=== PATIENT | male | born 1990 | race Caucasian/White ===

== ENCOUNTER 2017-09-03 15:09 | Emergency (ER) | payer SELFPAY ==
[2017-09-03 15:24] VITALS: PULSE 75
[2017-09-03] MEDS ORDERED: Sodium Chloride 0.9% 1,000 ML IV STA (15:36)
[2017-09-03] MEDS ORDERED: Sodium Chloride 0.9% 1,000 ML ONE (15:51)
[2017-09-03 16:07] LABS: BASO # 0.1 K/uL (0.0-0.2); BASO % 0.4 % (0.0-2.0); EOS # 0.2 K/uL (0.0-0.7); EOS % 1.2 % (0.0-4.0); HEMOGLOBIN 15.4 g/dL (12.0-18.0); LYMPH # 1.9 K/uL (1.0-4.3); MEAN CELL VOLUME 79.9 fL (80.0-94.0); MEAN CORPUSCULAR HEMOGLOBIN 27.8 pg (27.0-31.0); MEAN CORPUSCULAR HGB CONC 34.8 g/dL (33.0-37.0); MEAN PLATELET VOLUME 8.9 fL (7.2-11.7); MONO # 1.2 K/uL (0.0-0.8); MONO % 7.3 % (0.0-10.0); NEUT # 12.5 K/uL (1.8-7.0); NEUT % 79.1 % (50.0-75.0); NRBC % 0.5 % (0.0-2.0); RBC 5.53 Mil/uL (4.40-5.90); RED CELL DISTRIBUTION WIDTH 13.4 % (11.5-14.5); WHITE BLOOD COUNT 15.8 K/uL (4.8-10.8)
[2017-09-03 16:09] LABS: SQUAMOUS EPITHIAL < 1 /hpf (0-5); URINE BILIRUBIN NEGATIVE (NEGATIVE); URINE BLOOD 2+ (NEGATIVE); URINE CLARITY Clear (Clear); URINE COLOR Yellow (YELLOW); URINE GLUCOSE (UA) NORMAL (Normal); URINE LEUKOCYTE ESTERASE NEG Leu/uL (Negative); URINE PROTEIN NEGATIVE (NEGATIVE); URINE UROBILINOGEN NORMAL mg/dL (0.2-1.0)
--- NOTE | 2017-09-03 16:18 | C.PDOC ---
History Of Present Illness 27 y/o male presents to the ED complaining of right flank pain, onset earier today. Associated with nausea and vomiting. No fever, chills, dysuria, frequency , or hematuria. Patient reports PMHx of kidney stone on the other side a few years ago. He states his current symptoms are reminiscent of that pain. Time Seen by Provider: 09/03/17 15:34 Chief Complaint (Nursing): Male Genitourinary History Per: Patient History/Exam Limitations: no limitations Onset/Duration Of Symptoms: Hrs Current Symptoms Are (Timing): Still Present Past Medical History Reviewed: Historical Data, Nursing Documentation, Vital Signs Vital Signs: Last Vital Signs Temp 99.1 F 09/03/17 18:40 Pulse 75 09/03/17 18:40 Resp 18 09/03/17 18:40 BP 126/82 09/03/17 18:40 Pulse Ox 98 09/03/17 18:40 - Medical History PMH: Kidney Stones Surgical History: No Surg Hx Family History: States: No Known Family Hx - Social History Hx Tobacco Use: No Hx Alcohol Use: Yes Hx Substance Use: No - Immunization History Hx Tetanus Toxoid Vaccination: No Hx Influenza Vaccination: No Hx Pneumococcal Vaccination: No Review Of Systems Except As Marked, All Systems Reviewed And Found Negative. Constitutional: Negative for: Fever, Chills Gastrointestinal: Positive for: Nausea, Vomiting. Negative for: Diarrhea, Constipation, Hematochezia Genitourinary: Negative for: Dysuria, Frequency, Incontinence, Hematuria Physical Exam - Physical Exam Appears: No Acute Distress, Other (Uncomfortable, Appears restless) Skin: Normal Color, Warm, Dry Head: Atraumatic, Normacephalic Eye(s): bilateral: Normal Inspection, PERRL, EOMI Nose: Normal Oral Mucosa: Moist Neck: Normal ROM, Supple Cardiovascular: Rhythm Regular, No JVD Respiratory: Normal Breath Sounds, No Rales, No Rhonchi, No Wheezing Gastrointestinal/Abdominal: Soft, No Tenderness, No Distention, Other ( Exquisite tenderness to right flank) Back: Normal Inspection, No Vertebral Tenderness Extremity: Bilateral: Atraumatic, Normal Color And Temperature, Normal ROM Neurological/Psych: Oriented x3, Normal Speech, Normal Motor, Normal Sensation, Other (No focal deficits) ED Course And Treatment - Laboratory Results Result Diagrams: 09/03/17 16:09/03/17 16:01 O2 Sat by Pulse Oximetry: 99 (RA) Pulse Ox Interpretation: Normal - CT Scan/US CT A/P Other Rad Studies (CT/US): Read By Radiologist, Radiology Report Reviewed CT/US Interpretation: Accession No. : [id number]. Patient Name / ID : CELIA HOBBS / [id number]. Exam Date : 09/03/2017 16:37:22 ( Approved ). Study Comment : Sex / Age : M / 27Y. Creator : Dileep Khan MD. Dictator : Dileep Khan MD. Second Helper : Biological Scientist : Dileep Khan MD. Approver2 : Report Date : 09/03/2017 17:03:34. My Comment : . PROCEDURE: CT Abdomen and Pelvis without intravenous contrast. HISTORY: flank pain. COMPARISON: None. TECHNIQUE: Multiple contiguous axial images were performed through the abdomen and pelvis without the use of intravenous contrast. Subsequently, sagittal and coronal reformatted images were obtained. Radiation dose: Total exam DLP = 270 mGy-cm. This CT exam was performed using one or more of the following dose reduction techniques: Automated exposure control, adjustment of the mA and/or kV according to patient size, and/ or use of iterative reconstruction technique. FINDINGS: LOWER THORAX: Unremarkable. LIVER: Unremarkable. No gross lesion or ductal dilatation. GALLBLADDER AND BILE DUCTS: Unremarkable. PANCREAS: Unremarkable. No gross lesion or ductal dilatation. SPLEEN: Unremarkable. ADRENALS: Unremarkable. No mass. KIDNEYS AND URETERS: Mild to moderate right hydroureteronephrosis with associated perinephric fat stranding and an obstructing calculus in the mid right ureter measuring up to 7 millimeters. Additional calculus in the mid to lower pole of the right kidney measuring up to 6 millimeters. Few punctate 1 -2 millimeter nonobstructive calculi in the left kidney. VASCULATURE: Unremarkable. No aortic aneurysm. BOWEL: Fecal retention in the colon. Under distended descending colon. APPENDIX: Unremarkable. Normal appendix. PERITONEUM: Unremarkable. No free fluid. No free air. LYMPH NODES: Few shotty inguinal and para-aortic lymph nodes. Few shotty mesenteric lymph nodes. BLADDER: Unremarkable. REPRODUCTIVE: Unremarkable. BONES: Few scattered bone islands within the visualized osseous structures. OTHER FINDINGS : None. IMPRESSION: Mild to moderate right hydroureteronephrosis with associated perinephric fat stranding and an obstructing calculus in the mid right ureter measuring up to 7 millimeters. Additional calculus in the mid to lower pole of the right kidney measuring up to 6 millimeters. Additional findings as above. Progress Note: Labs and CT A/P ordered. Patient given IV fluids, Toradol, and Zofran. CT shows 7mm obstructing left stone, findings discussed in detail with patient. Patient given PO Flomax. 6:05pm Discussed case with Dr. Sobeida Caban , urology on-call, who recommends to d/c patient home, follow up in his office in 2 days, return to ED if feel worse. CT report and patient's information were faxed to 's office per his request and patient's permission. Disposition - Disposition Referrals: Sobeida Caban MD [Staff Provider] - Disposition: HOME/ ROUTINE Disposition Time: 18:27 Condition: STABLE Additional Instructions: Follow up with Urologist within 1-2 days. Return to ED immediately if feel worse. Prescriptions: Ciprofloxacin [Cipro] 1 tab PO BID #14 tab Tamsulosin HCl [Flomax] 0.4 mg PO DAILY #10 cap.er.24h oxyCODONE/Acetaminophen [Percocet 5/325 mg Tab] 1 tab PO QID PRN #20 tab PRN Reason: Pain Ondansetron ODT [Zofran ODT] 4 mg PO .Q4-6H PRN #20 odt PRN Reason: Nausea/Vomiting Instructions: Renal Colic (DC) Forms: [employer] (British) - Clinical Impression Clinical Impression: Renal colic on right side - PA / YARD ASSISTANT / Resident Statement MD/DO has reviewed & agrees with the documentation as recorded. - Scribe Statement The provider has reviewed the documentation as recorded by the Scribe (Dominga Bray) All medical record entries made by the Scribe were at my direction and personally dictated by me. I have reviewed the chart and agree that the record accurately reflects my personal performance of the history, physical exam, medical decision making, and the department course for this patient. I have also personally directed, reviewed, and agree with the discharge instructions and disposition.
[2017-09-03 16:32] LABS: ALB/GLOB RATIO 1.3 (1.0-2.1); ALBUMIN 4.7 g/dL (3.5-5.0); ALT/SGPT 31 U/L (21-72); AST/SGOT 37 U/L (17-59); BLOOD UREA NITROGEN 10 mg/dL (9-20); CALCIUM 9.8 mg/dl (8.6-10.4); GFR AFRICAN-AMERICAN > 60; GFR NON-AFRICAN AMERICAN > 60
--- NOTE | 2017-09-03 17:05 | CT ---
PROCEDURE: CT Abdomen and Pelvis without intravenous contrast HISTORY: flank pain COMPARISON: None. TECHNIQUE: Multiple contiguous axial images were performed through the abdomen and pelvis without the use of intravenous contrast. Subsequently, sagittal and coronal reformatted images were obtained. Radiation dose: Total exam DLP = 270 mGy-cm. This CT exam was performed using one or more of the following dose reduction techniques: Automated exposure control, adjustment of the mA and/or kV according to patient size, and/or use of iterative reconstruction technique. FINDINGS: LOWER THORAX: Unremarkable. LIVER: Unremarkable. No gross lesion or ductal dilatation. GALLBLADDER AND BILE DUCTS: Unremarkable. PANCREAS: Unremarkable. No gross lesion or ductal dilatation. SPLEEN: Unremarkable. ADRENALS: Unremarkable. No mass. KIDNEYS AND URETERS: Mild to moderate right hydroureteronephrosis with associated perinephric fat stranding and an obstructing calculus in the mid right ureter measuring up to 7 millimeters. Additional calculus in the mid to lower pole of the right kidney measuring up to 6 millimeters. Few punctate 1-2 millimeter nonobstructive calculi in the left kidney. VASCULATURE: Unremarkable. No aortic aneurysm. BOWEL: Fecal retention in the colon. Under distended descending colon. APPENDIX: Unremarkable. Normal appendix. PERITONEUM: Unremarkable. No free fluid. No free air. LYMPH NODES: Few shotty inguinal and para-aortic lymph nodes. Few shotty mesenteric lymph nodes. BLADDER: Unremarkable. REPRODUCTIVE: Unremarkable. BONES: Few scattered bone islands within the visualized osseous structures. OTHER FINDINGS: None. IMPRESSION: Mild to moderate right hydroureteronephrosis with associated perinephric fat stranding and an obstructing calculus in the mid right ureter measuring up to 7 millimeters. Additional calculus in the mid to lower pole of the right kidney measuring up to 6 millimeters. Additional findings as above.
[2017-09-03 18:41] VITALS: BP 126/82; RESP 18; TEMP 99.1
[2017-09-03 18:59] VITALS: O2SAT 99
== END 2017-09-03 18:50 | disposition home or self-care (01) ==
LOC: C.ER 15:09
DX: N23 Unspecified renal colic (principal)
CPT/HCPCS: 74176; 80053; 81001; 85025; 96361; 96374; 99284; J1885; J7030

== ENCOUNTER 2018-04-06 08:45 | Emergency (ER) | payer OTHER ==
[2018-04-06] MEDS ORDERED: Sodium Chloride 0.9% 1,000 ML IV ONE (09:31)
[2018-04-06 09:52] LABS: BASO % 0.3 % (0.0-2.0); EOS # 0.4 K/uL (0.0-0.7); EOS % 3.2 % (0.0-4.0); LYMPH # 1.1 K/uL (1.0-4.3); LYMPH % 8.9 % (20.0-40.0); MEAN CELL VOLUME 82.3 fL (80.0-94.0); MEAN CORPUSCULAR HEMOGLOBIN 27.6 pg (27.0-31.0); MEAN CORPUSCULAR HGB CONC 33.6 g/dL (33.0-37.0); MEAN PLATELET VOLUME 8.7 fL (7.2-11.7); MONO # 0.7 K/uL (0.0-0.8); MONO % 5.9 % (0.0-10.0); NEUT % 81.7 % (50.0-75.0); PLATELET COUNT 207 K/uL (130-400); RBC 5.42 Mil/uL (4.40-5.90); RED CELL DISTRIBUTION WIDTH 14.1 % (11.5-14.5); WHITE BLOOD COUNT 12.3 K/uL (4.8-10.8)
[2018-04-06] MEDS ORDERED: Morphine 4 MG/ML VIAL ONE (09:56)
[2018-04-06 09:58] LABS: URINE BACTERIA RARE (<OCC); URINE BILIRUBIN NEGATIVE (NEGATIVE); URINE BLOOD 2+ (NEGATIVE); URINE CLARITY Clear (Clear); URINE COLOR Yellow (YELLOW); URINE GLUCOSE (UA) NORMAL (Normal); URINE LEUKOCYTE ESTERASE NEG Leu/uL (Negative); URINE PROTEIN NEGATIVE (NEGATIVE); URINE UROBILINOGEN NORMAL mg/dL (0.2-1.0)
[2018-04-06 10:03] LABS: ALB/GLOB RATIO 1.4 (1.0-2.1); ALBUMIN 4.7 g/dL (3.5-5.0); ALT/SGPT 67 U/L (21-72); AST/SGOT 61 U/L (17-59); BLOOD UREA NITROGEN 10 mg/dL (9-20); CALCIUM 9.1 mg/dl (8.6-10.4); GFR NON-AFRICAN AMERICAN > 60
[2018-04-06 10:24] LABS: BANDS 1 % (0-2); EOSINOPHIL 4 % (0-4); LYMPHOCYTE 7 % (20-40); MONOCYTE 3 % (0-10); NEUTROPHIL 84 % (50-75); PLATELET ESTIMATE NORMAL (NORMAL); REACTIVE LYMPHOCYTES 1 % (0-0); TOTAL CELLS COUNTED 100
--- NOTE | 2018-04-06 10:53 | CT ---
PROCEDURE: CT Abdomen and Pelvis without Oral or IV contrast. HISTORY: Right flank pain and RLQ abd pain COMPARISON: CT abdomen and pelvis without IV contrast performed 09/03/17 TECHNIQUE: Contiguous axial images of the abdomen and pelvis. No oral or IV contrast administered. Coronal and Sagittal reformats generated and reviewed. Radiation dose: Total exam DLP = 452.22 mGy-cm. This CT exam was performed using one or more of the following dose reduction techniques: Automated exposure control, adjustment of the mA and/or kV according to patient size, and/or use of iterative reconstruction technique. FINDINGS: There is limited evaluation of the solid organs without the administration of IV contrast. LOWER THORAX: No visible consolidation, pleural effusion, or pneumothorax. LIVER: Unremarkable unenhanced appearance. GALLBLADDER AND BILE DUCTS: Unremarkable unenhanced appearance. PANCREAS: Unremarkable unenhanced appearance. SPLEEN: Unremarkable unenhanced appearance. ADRENALS: Unremarkable unenhanced appearance. KIDNEYS AND URETERS: 6 mm obstructing calculus at the right UVJ with proximal hydroureter and hydronephrosis. Additional nonobstructing right renal calculi. No left-sided hydronephrosis or obstructing calculi. BLADDER: The urinary bladder appears unremarkable. REPRODUCTIVE: Unremarkable. APPENDIX: The appendix appears within normal limits of caliber. No secondary signs of acute appendicitis. BOWEL: The stomach is nondistended. Lack of oral contrast limits evaluation for bowel pathology. The bowel loops appear within normal limits of caliber without evidence of intestinal obstruction. PERITONEUM: No significant free fluid. No definite free air. LYMPH NODES: No bulky lymphadenopathy identified. VASCULATURE: No atherosclerotic calcification of the aorta evident. No aortic aneurysm. BONES: No acute osseous abnormality is detected. OTHER FINDINGS: None. IMPRESSION: 6 mm obstructing calculus at the right UVJ with proximal hydroureter and hydronephrosis. Additional nonobstructing right renal calculi.
--- NOTE | 2018-04-06 11:11 | C.PDOC ---
History Of Present Illness 27 year old male with a PMHx of kidney stones, presents to the ED with right flank pain radiating to the RLQ since he awoke 7:30am. Pain is constant, feels similar to prior episode of kidney stones that occurred 7 months ago. Patient also reports nausea, but no vomiting. Otherwise denies any fever, chills, diarrhea, dark or bloody stools. Time Seen by Provider: 04/06/18 09:20 Chief Complaint (Nursing): Abdominal Pain History Per: Patient History/Exam Limitations: no limitations Onset/Duration Of Symptoms: Hrs Current Symptoms Are (Timing): Still Present Past Medical History Reviewed: Historical Data, Nursing Documentation, Vital Signs Vital Signs: Last Vital Signs Temp 97.8 F 04/06/18 08:56 Pulse 65 04/06/18 08:56 Resp 18 04/06/18 08:56 BP 148/99 H 04/06/18 08:56 Pulse Ox 100 04/06/18 08:56 - Medical History PMH: Kidney Stones, Chronic Kidney Disease Family History: States: No Known Family Hx - Social History Hx Tobacco Use: No Hx Alcohol Use: Yes Hx Substance Use: No - Immunization History Hx Tetanus Toxoid Vaccination: No Hx Influenza Vaccination: No Hx Pneumococcal Vaccination: No Review Of Systems Constitutional: Negative for: Fever, Chills Cardiovascular: Negative for: Chest Pain Respiratory: Negative for: Shortness of Breath Gastrointestinal: Positive for: Nausea, Abdominal Pain (RLQ and right flank ). Negative for: Vomiting, Diarrhea, Melena, Hematochezia Neurological: Negative for: Weakness, Numbness Physical Exam - Physical Exam Appears: Well, Non-toxic, No Acute Distress Skin: Warm, Dry, No Rash Head: Atraumatic, Normacephalic Eye(s): bilateral: Normal Inspection Oral Mucosa: Moist Neck: Normal ROM Chest: Symmetrical Cardiovascular: Rhythm Regular, No Murmur Respiratory: Normal Breath Sounds, No Rales, No Rhonchi, No Wheezing Gastrointestinal/Abdominal: Bowel Sounds (active), Soft, Tenderness (mild tenderness to the RLQ), No Guarding Back: Normal Inspection, No CVA Tenderness, No Vertebral Tenderness Extremity: Bilateral: Atraumatic, Normal Color And Temperature Pulses: Left Dorsalis Pedis: Normal, Right Dorsalis Pedis: Normal Neurological/Psych: Oriented x3, Normal Speech, Other (No focal deficits) Gait: Steady ED Course And Treatment - Laboratory Results Result Diagrams: 04/06/18 09:44 04/06/18 09:44 O2 Sat by Pulse Oximetry: 100 (RA) Pulse Ox Interpretation: Normal - Other Rad abdominal x-ray X-Ray: Read By Radiologist Interpretation: Accession No. : [id number]. Patient Name / ID : CELIA HOBBS / [id number]. Exam Date : 04/06/2018 11:49:41 ( Approved ). Study Comment : Sex / Age : M / 27Y. Creator : January Baum MD. Dictator : January Baum MD. Motor Tester : Sign Artist : January Baum MD. Approver2 : Report Date : 04/06/2018 12:19:22. My Comment : . Date of service: 04/06/2018. HISTORY: rt kidney stone. COMPARISON: CT abdomen and pelvis without contrast performed 04/06/18. FINDINGS: BOWEL: Nonobstructive bowel gas pattern. Mild constipation. BONES: 6 mm sclerotic focus at the right femoral head, likely bone island. No acute osseous abnormality is detected. OTHER FINDINGS: 4 mm calcification projects over the right upper quadrant overlying the right renal shadow. 4 mm right pelvic calcification consistent with calculus demonstrated at the right UVJ on CT performed earlier the same day. IMPRESSION: 4 mm calcification projects over the right upper quadrant overlying the right renal shadow. 4 mm right pelvic calcification consistent with calculus demonstrated at the right UVJ on CT performed earlier the same day. - CT Scan/US CT abd/pelvis Other Rad Studies (CT/US): Read By Radiologist, Radiology Report Reviewed CT/US Interpretation: Accession No. : [id number]. Patient Name / ID : CELIA Reynoso / [id number]. Exam Date : 04/06/2018 10:11:01 ( Approved ). Study Comment : Sex / Age : M / 27Y. Creator : January Baum MD. Dictator : January Baum MD. Motor Tester : Sign Artist : January Buam MD. Approver2 : Report Date : 04/06/2018 10:49:16. My Comment : . PROCEDURE: CT Abdomen and Pelvis without Oral or IV contrast. HISTORY: Right flank pain and RLQ abd pain. COMPARISON: CT abdomen and pelvis without IV contrast performed 09/03/17. TECHNIQUE: Contiguous axial images of the abdomen and pelvis. No oral or IV contrast administered. Coronal and Sagittal reformats generated and reviewed. Radiation dose: Total exam DLP = 452.22 mGy- cm. This CT exam was performed using one or more of the following dose reduction techniques: Automated exposure control, adjustment of the mA and/or kV according to patient size, and/or use of iterative reconstruction technique. FINDINGS: There is limited evaluation of the solid organs without the admin istration of IV contrast. LOWER THORAX: No visible consolidation, pleural effusion, or pneumothorax. LIVER: Unremarkable unenhanced appearance. GALLBLADDER AND BILE DUCTS: Unremarkable unenhanced appearance. PANCREAS: Unremarkable unenhanced appearance. SPLEEN: Unremarkable unenhanced appe arance. ADRENALS: Unremarkable unenhanced appearance. KIDNEYS AND URETERS: 6 mm obstructing calculus at the right UVJ with proximal hydroureter and hydronephrosis. Additional nonobstructing right renal calculi. No left-sided hydronephrosis or obstructing calculi. BLADDER: The urinary bladder appears unremarkable. REPRODUCTIVE: Unremarkable. APPENDIX: The appendix appears within normal limits of caliber. No secondary signs of acute appendicitis. BOWEL: The stomach is nondistended. Lack of oral contrast limits evaluation for bowel pathology. The bowel loops appear within normal limits of caliber without evidence of intestinal obstruction. PERITONEUM: No significant free fluid. No definite free air. LYMPH NODES: No bulky lymphadenopathy identified. VASCULATURE: No atherosclerotic calcification of the aorta evident. No aortic aneurysm. BONES: No acute osseous abnormality is detected. OTHER FINDINGS: None. IMPRESSION: 6 mm obstructing calculus at the right UVJ with proximal hydroureter and hydronephrosis. Additional nonobstructing right renal calculi. Medical Decision Making Medical Decision Making: Impression: 27 year old with right flank pain and RLQ pain Initial Plan: --Blood work --Urinalysis --Abdominal x-ray --CT Abd/Pelvis --IV fluids --30 mg IV Toradol --4 mg IV Zofran --4 mg IV Morphine Progress: Labs reviewed. CT reviewed, + obstructing stone. 1108 Dr. Sobeida Caban paged for consult. 1115 Dr. Caban returned call, and states there is possibility of stone passing and as long as patient pain improved, he can be discharged and follow up in the office. Additionally requested adding Abdominal xray and to fax face sheet. Patient re-evaluated and reports pain is improving. I explained all results to patient and the plan for discharge with rx. Patient was instructed he has to follow up with urologist for further management and expressed understanding. Patient stable for discharge. Disposition Counseled Patient/Family Regarding: Studies Performed, Diagnosis, Need For Followup, Rx Given - Disposition Referrals: Sobeida Caban MD [Staff Provider] - Disposition: HOME/ ROUTINE Disposition Time: 11:15 Condition: STABLE Additional Instructions: Your results show you have 6mm kidney stone. It is important that you follow up with Urologist Dr Sobeida Caban Take pain medicine as needed and Flomax daily Strain your urine Prescriptions: oxyCODONE/Acetaminophen [Percocet 5/325 mg Tab] 1 tab PO Q8 PRN #20 tab PRN Reason: Pain, Severe (8-10) Tamsulosin [Flomax] 0.4 mg PO DAILY #10 cap Instructions: Kidney Stones (DC) Forms: [employer] (Romanian) - POA Present On Arrival: None - Clinical Impression Clinical Impression: Right kidney stone - PA / PATTERN REPAIR PERSON / Resident Statement MD/DO has reviewed & agrees with the documentation as recorded. - Scribe Statement The provider has reviewed the documentation as recorded by the Scribe Dominga Bray All medical record entries made by the Scribe were at my direction and personally dictated by me. I have reviewed the chart and agree that the record accurately reflects my personal performance of the history, physical exam, medical decision making, and the department course for this patient. I have also personally directed, reviewed, and agree with the discharge instructions and disposition.
--- NOTE | 2018-04-06 11:15 | C.PDOC ---
Time Seen by Provider: 04/06/18 09:20 Chief Complaint (Nursing): Abdominal Pain Past Medical History Vital Signs: Last Vital Signs Temp 97.8 F 04/06/18 08:56 Pulse 65 04/06/18 08:56 Resp 18 04/06/18 08:56 BP 148/99 H 04/06/18 08:56 Pulse Ox 100 04/06/18 11:14 - Medical History PMH: Kidney Stones, Chronic Kidney Disease - Social History Hx Tobacco Use: No Hx Alcohol Use: Yes Hx Substance Use: No - Immunization History Hx Tetanus Toxoid Vaccination: No Hx Influenza Vaccination: No Hx Pneumococcal Vaccination: No ED Course And Treatment - Laboratory Results Result Diagrams: 04/06/18 09:44 04/06/18 09:44 O2 Sat by Pulse Oximetry: 100 Disposition Counseled Patient/Family Regarding: Diagnosis, Need For Followup, Rx Given - Disposition Disposition: HOME/ ROUTINE Disposition Time: 11:15 Condition: IMPROVED Forms: [employer] (Albanian)
--- NOTE | 2018-04-06 12:23 | RAD ---
Date of service: 04/06/2018 HISTORY: rt kidney stone COMPARISON: CT abdomen and pelvis without contrast performed 04/06/18 FINDINGS: BOWEL: Nonobstructive bowel gas pattern. Mild constipation. BONES: 6 mm sclerotic focus at the right femoral head, likely bone island. No acute osseous abnormality is detected. OTHER FINDINGS: 4 mm calcification projects over the right upper quadrant overlying the right renal shadow. 4 mm right pelvic calcification consistent with calculus demonstrated at the right UVJ on CT performed earlier the same day. IMPRESSION: 4 mm calcification projects over the right upper quadrant overlying the right renal shadow. 4 mm right pelvic calcification consistent with calculus demonstrated at the right UVJ on CT performed earlier the same day.
[2018-04-06 12:47] VITALS: RESP 18; O2SAT 100
[2018-04-06 13:22] VITALS: BP 122/83; PULSE 80
[2018-04-06 13:24] VITALS: TEMP 98.3
== END 2018-04-06 12:50 | disposition home or self-care (01) ==
LOC: C.ER 08:45
DX: N20.0 Calculus of kidney (principal)
CPT/HCPCS: 74019; 74176; 80053; 81001; 85025; 96361; 96374; 96375; 99285; J1885; J2270; J2405; J7030